=== PATIENT | female | born 1955 | race Caucasian/White ===

== ENCOUNTER 2020-06-19 16:04 | Emergency (ER) | payer SELFPAY ==
[~2020-06-19] VITALS: Ht 157.5 cm; Wt 79.3 kg
[2020-06-19] MEDS ORDERED: LIDOCAINE 1%/EPI 1:100,000 10 ML VIAL IJ NR (16:40)
[2020-06-19] MEDS ORDERED: LIDOCAINE HCL/EPINEPHRINE 1%-EPI 1:100,000 30 ML VIAL INFIL ONE (16:45)
[2020-06-19] MEDS ORDERED: LIDOCAINE 1%/EPI 1:200,000 10 ML VIAL IJ NR (16:45)
[2020-06-19 17:47] LABS: BASOPHILS % 0.4 % (0.0-2.0); EOSINOPHILS % 1.6 % (0.0-5.0); HEMATOCRIT. 36.3 % (36.0-48.0); LYMPHOCYTES % 10.2 % (20.0-50.0); MEAN CORPUSCULAR VOLUME 84.4 fL (81.0-99.0); MEAN PLATELET VOLUME 7.3 fl (7.4-10.4); MONOCYTES % 4.5 % (2.0-8.0); NEUTROPHILS % 83.3 % (40.0-76.0); PLATELET 602 x1000/uL (130-400); RED CELL DISTRIBUTION WIDTH 13.8 % (11.6-14.6)
[2020-06-19 17:51] LABS: CHLORIDE 101 mEq/L (98-107)
[2020-06-19] MEDS ORDERED: IOHEXOL-300 100 ML BOTTLE ONE (18:38)
[2020-06-19] MEDS ORDERED: MORPHINE SULFATE 4 MG/ML CPJ (NOT FOR IM USE) IV ONE (18:45)
[2020-06-19 18:52] VITALS: BP 167/70
== END 2020-06-19 19:13 | disposition home or self-care (01) ==
LOC: ER 16:04
DX: L02.211 Cutaneous abscess of abdominal wall (principal); I10 Essential (primary) hypertension
CPT/HCPCS: 10060; 36415; 74177; 80048; 85025; 96374; 99285; J2270; J3490; Q9967